=== PATIENT | female | born 1975 | race Caucasian/White ===

== ENCOUNTER 2018-01-21 08:40 | Day surgery (SDC) | payer BC ==
[~2018-01-21 08:40] MED LIST: Lactated Ringers 1,000 ML IV SCH; Sodium Chloride 0.9% 10 ML Syringe FLUSH PRN; Sodium Chloride 0.9% 2.5 ML Syringe FLUSH PRN
--- NOTE | 2018-01-21 09:06 | PCM.PREANE ---
Preanesthetic Assessment - Anesthesia/Transfusion/Family Hx Anesthesia History: Prior Anesthesia Without Reaction Transfusion History: Prior Transfusion Without Reaction - Review of Systems General: No Symptoms Pulmonary: No Symptoms Cardiovascular: No Symptoms Gastrointestinal: No Symptoms Neurological: No Symptoms Other: Reports: None - Physical Assessment NPO Status Date: 01/20/18 Height: 1.6 m Weight: 68.039 kg ASA Class: 2 Mental Status: Alert & Oriented x3 Airway Class: Mallampati = 1 Dentition: Reports: Normal Dentition ROM/Head Extension: Full Lungs: Clear to Auscultation, Normal Respiratory Effort Cardiovascular: Regular Rate, Regular Rhythm - Allergies Allergies/Adverse Reactions: Allergies Allergy/AdvReac Type Severity Reaction Status Date / Time No Known Allergies Allergy Verified 01/16/18 08:39 - Anesthesia Plan Pre-Op Medication Ordered: None - Acknowledgements Anesthesia Type Planned: General Anesthesia (PMH: smoker, migraine, IBS, fibromyalgia, takes tramadol) Pt an Appropriate Candidate for the Planned Anesthesia: Yes Alternatives and Risks of Anesthesia Discussed w Pt/Guardian: Yes Pt/Guardian Understands and Agrees with Anesthesia Plan: Yes Additional Comments: PMH: smoker, migraine, IBS, fibromyalgia, takes tramadol PLAN: GA-LMA, avoid demerol (because of risk of serotonin syndrome from demerol and tramadol) PreAnesthesia Questionnaire Gastrointestinal History: Reports: Other (See Below) Other Gastrointestinal History: hx gastric ulcers Genitourinary History: Reports: None X RAY CONSULTANT History: Reports: Dysfunctional Uterine Bleeding, Ectopic , Musculoskeletal History: Reports: Arthritis, Fibromyalgia Neurological History: Reports: Migraines Other Neuro History: migraines in the past Psychiatric History: Reports: Depression Hematologic History: Reports: Anemia, Blood Transfusion(s) - Past Surgical History Head Surgeries/Procedures: Reports: None GI Surgical History: Reports: Hernia, Abdominal Other GI Surgeries/Procedures: hx umbilical hernia repair Female Surgical History: Reports: Breast Implant, Other (See Below) Other Female Surgeries/Procedures: hx laparoscopy with rt salpingectomy for ectopic , hx breast augmentation - SUBSTANCE USE Smoking Status *Q: Current Every Day Smoker Tobacco Use Within Last Twelve Months: Cigarettes Recreational Drug Use History: No - HOME MEDS Home Medications: Home Meds Ferrous Sulfate 325 mg PO DAILY 01/16/18 [History] traMADol [Ultram] 50 mg PO ASDIRECTED PRN 01/16/18 [History] - CURRENT (IN HOUSE) MEDS Current Meds: Current Medications Lactated Ringer's (Ringers, Lactated) 1,000 mls @ 125 mls/hr IV ASDIRECTED NANCY Sodium Chloride (Saline Flush) 10 ml FLUSH ASDIRECTED PRN PRN Reason: Keep Vein Open Sodium Chloride (Saline Flush) 2.5 ml FLUSH ASDIRECTED PRN PRN Reason: Keep Vein Open
[2018-01-21] MEDS ORDERED: Ondansetron 4 MG/2 ML SDV ONE (09:10)
[2018-01-21] MEDS ORDERED: Lidocaine 2% 5 ML SDV ONE (09:10)
[2018-01-21] MEDS ORDERED: Propofol 200 MG/20 ML SDV ONE (09:11)
[2018-01-21] MEDS ORDERED: fentaNYL 250 MCG/5 ML SDV ONE (09:11)
[2018-01-21] MEDS ORDERED: Midazolam 1 MG/ML 2 ML SDV ONE (09:11)
[2018-01-21] MEDS ORDERED: Dexamethasone 4 MG/ML 5 ML MDV ONE (09:12)
[2018-01-21] MEDS ORDERED: diphenhydrAMINE 50 MG/ML SDV ONE (09:12)
[2018-01-21] MEDS ORDERED: ePHEDrine 50 MG/ML SDV ONE (10:13)
[2018-01-21] MEDS ORDERED: Phenylephrine/Normal Saline 100 MCG/ML 10 ML Syringe ONE (10:29)
[2018-01-21] MEDS ORDERED: Ketorolac 30 MG/ML SDV ONE (10:33)
[2018-01-21] MEDS ORDERED: Ketorolac 15 MG/ML SDV IVPUSH ONE (10:46)
--- NOTE | 2018-01-21 10:53 | PCM.OPNOTE ---
- General Post-Op/Procedure Note Date of Surgery/Procedure: 01/21/18 Operative Procedure(s): Dilatation & Curretage Hysteroscopy. Endometrial ablation with Vanessa Findings: Normal sized retroverted uterus Endometrium appeared unremarkable except for mildly proliferative endometrium on the anterior lower uterine wall Bilateral ostia visualized Pre Op Diagnosis: Abnormal uterine bleeding Post-Op Diagnosis: Abnormal uterine bleeding Anesthesia Technique: General LMA Primary Surgeon: Claritza Melton Pathology: Endometrial and endocervical currettings Fluid Replacement, Intraop: 1,100 Output, Urine Amount: 50 EBL in mLs: 10 Complications: None Condition: Good
[2018-01-21] MEDS ORDERED: Acetaminophen 1,000 MG in Premix Bag 1 BAG IV PRN (11:05)
[2018-01-21] MEDS ORDERED: HYDROmorphone 2 MG/ML SDV IVPUSH ONE ×2 (11:44→12:55)
--- NOTE | 2018-01-21 13:16 | PCM.POSTAN ---
POST ANESTHESIA ASSESSMENT - MENTAL STATUS Mental Status: Alert, Oriented - RESPIRATORY Respiratory Status: Respiratory Rate WNL, Airway Patent, O2 Saturation Stable - CARDIOVASCULAR CV Status: Pulse Rate WNL, Blood Pressure Stable - GASTROINTESTINAL GI Status: No Symptoms - POST OP HYDRATION Hydration Status: Adequate & Stable
--- NOTE | 2018-01-21 13:18 | PCM48HPAN ---
Post Anesthesia Note - EVALUATION WITHIN 48HRS OF ANESTHETIC Vital Signs in Normal Range: Yes Patient Participated in Evaluation: Yes Respiratory Function Stable: Yes Airway Patent: Yes Cardiovascular Function Stable: Yes Hydration Status Stable: Yes Pain Control Satisfactory: Yes Nausea and Vomiting Control Satisfactory: Yes Mental Status Recovered: Yes Resp Rate: 20 - COMMENTS/OBSERVATIONS Free Text/Narrative:: pt uncomfortable with crampy uterine pain. has received iv tylenol, toradol fentanyl, dilaudid, and dexamethasone. Pt has chronic pain syndromes . Unlikely to be able to take away more pain at this time.
--- NOTE | 2018-01-21 15:03 | OR ---
SURGEON: RAHUL CULLEN DATE OF PROCEDURE: 01/21/2018 PREOPERATIVE DIAGNOSES: A 42-year-old P6-0-3-6 with heavy menstrual bleeding and anemia. POSTOPERATIVE DIAGNOSES: A 42-year-old P6-0-3-6 with heavy menstrual bleeding and anemia. PROCEDURES: Hysteroscopy, dilatation and curettage with MyoSure device, and endometrial ablation. IV FLUIDS: 1100 mL. ESTIMATED BLOOD LOSS: 10 mL. ANESTHESIA: General. NOTES AND FINDING: Normal size retroverted uterus. The hysteroscopy showed normal endometrium which was thickened in the low anterior portion of the uterus. BRIEF HISTORY: The patient is a 42-year-old P6-0-3-6 with heavy menstrual bleeding. She was using above one tampon every hour. The patient had ultrasound done that showed an endometrium, which was thickened and had some focal areas within it. She had H and H done, which showed . The patient was given the option for management for heavy menstrual bleeding to include Mirena IUD, control pill, or with some definitive treatment with hysterectomy. The patient noted to go ahead with an ablation after understanding risks of procedure and alternatives. DESCRIPTION OF PROCEDURE: The patient was taken to the operating room and was placed in the dorsal lithotomy position. General anesthesia was performed without difficulty. On examination under anesthesia, revealed the above-noted findings. A bivalve speculum was placed into the vagina and an Allis forceps was used to grasp the anterior lip of the cervix. The cervix was hydrodistended and dilated with MyoSure hysteroscope. The hysteroscope then noted to have above-noted findings. Then, the MyoSure device was placed into curette anterior thickened part of the endometrium, which was sent to pathology after which, the hysteroscope with MyoSure was removed. A gentle curettage was also done after this. Then, Mirena device was set. The uterus was sounded to 9 cm. The cervix was measured to be 4 cm, which made the depth of 9 and 5 cm. The Mirena device was set to 5 cm and was inserted into neutral canal. The integrity of the device was checked. The balloon was then fully distended. was then started and the cycle was then started, which was 120 seconds. After the 120 seconds, the balloon was deflated. The maneuver device was unlocked and removed. The patient tolerated the procedure well. The Allis was removed. Speculum was removed. All instrument and pad counts were correct x2. REYNA / NATI /[id number]
== END 2018-01-21 13:35 | disposition home or self-care (01) ==
LOC: MW.SDS 08:40
PROVIDERS: ATTEND Obstetrics & Gynecology
DX: N93.9 Abnormal uterine and vaginal bleeding, unspecified (principal); D64.9 Anemia, unspecified; F17.210 Nicotine dependence, cigarettes, uncomplicated; F32.9 Major depressive disorder, single episode, unspecified; Z79.899 Other long term (current) drug therapy
CPT/HCPCS: 36415; 58563; 84703; 85027; J1100; J1170; J1200; J1885; J2250; J2405; J3010; J7120; 88305; J2704